=== PATIENT | female | born 1945 | race Caucasian/White ===

== ENCOUNTER 2016-09-24 12:55 | Outpatient (CLI) | payer OTHER, MEDICARE ==
--- NOTE | 2016-09-24 13:42 | DIAGNOSTIC IMAGING REPORT ---
PROCEDURE: MG BILATERAL SCREENING W/CAD INDICATION: SCREENING TECHNIQUE: Bilateral CC and MLO digital views. COMPARISON: Compared to prior studies from [facility] on 03/13/2015, 12/22/2013, and 09/01/2012. FINDINGS: Computer-aided detection applied. Dense parenchymal pattern with a few dystrophic calcifications. No change. IMPRESSION: 1. Negative mammogram. RESULT CODE: 1- Negative. A. A negative report should not delay biopsy if a dominant or clinically suspicious mass is present. 10-15% of cancers are not identified by x-ray. B. A negative report may reinforce clinical impression. C. Adenosis and dense breasts may obscure an underlying neoplasm. D. False positive reports average 6-10%. E.. A yearly screening mammogram is recommended. A reminder letter will be scheduled.
--- NOTE | 2016-09-24 17:35 | DIAGNOSTIC IMAGING REPORT ---
PROCEDURE: US ART LOWER EXT WITH MAMI-B/L INDICATION: Bilateral lower extremity claudication. No history of diabetes. TECHNIQUE: Preexercise ABIs were performed. The patient was exercised (toe-ups) and postexercise ABIs were repeated followed by color Doppler duplex imaging of the lower extremities. COMPARISON: None. FINDINGS: RIGHT LOWER EXTREMITY: ABIs: Pre exercise ABIs are severely diminished (posterior tibial N/A, dorsalis pedis 0.3) and are minimally changed following exercise (posterior tibial N/A, dorsalis pedis 0.5). VESSELS: There are severe calcified atheromatous changes of the right lower extremity arterial system. RIGHT LOWER EXTREMITY PEAK SYSTOLIC VELOCITIES: External iliac: Biphasic 213 cm/second. Common femoral artery: Biphasic 119 cm/second. Profunda femoral artery: Biphasic 142 cm/second. Proximal superficial femoral artery: Biphasic 49 cm/second. Mid superficial femoral artery: Biphasic 64 cm/second. Distal superficial femoral artery: Monophasic 75 cm/second. Popliteal artery: Monophasic 71 cm/second. Proximal posterior tibial artery: Monophasic 9 cm/second. Proximal anterior tibial artery: Monophasic 18 cm/second. Peroneal artery: Monophasic 10 cm/second. Distal posterior tibial artery: Monophasic 8 cm/second. Dorsalis pedis artery: Monophasic 17 cm/second. LEFT LOWER EXTREMITY: ABIs: Pre exercise ABIs are moderately to severely diminished (posterior tibial 0.7, dorsalis pedis 0.4) and are moderately worse following exercise (dorsalis pedis 0.4, dorsalis pedis 0.4). VESSELS: There are severe calcified atheromatous changes of the left lower extremity arterial system. LEFT LOWER EXTREMITY PEAK SYSTOLIC VELOCITIES: External iliac: Biphasic 152 cm/second. Common femoral artery: Biphasic 124 cm/second. Profunda femoral artery: Biphasic 82 cm/second. Proximal superficial femoral artery: Monophasic 359 cm/second. Mid superficial femoral artery: Monophasic 106 cm/second. Distal superficial femoral artery: Monophasic 94 cm/second. Popliteal artery: Monophasic 50 cm/second. Proximal posterior tibial artery: Monophasic 22 cm/second. Proximal anterior tibial artery: Monophasic 13 cm/second. Peroneal artery: Monophasic 17 cm/second. Distal posterior tibial artery: Monophasic 22 cm/second. Dorsalis pedis artery: Monophasic 16 cm/second. IMPRESSION: 1. Marked calcified atheromatous change of bilateral lower extremity all system. 2. Severe resting and postexercise arterial insufficiency of the right lower extremity secondary to multilevel atheromatous disease and severe trifurcation disease. 3. Moderate to severe resting and severe postexercise arterial insufficiency of the left lower extremity secondary multilevel atheromatous disease, high-grade stenosis (50-99%) of the proximal left superficial femoral artery, and severe trifurcation disease.
== END 2016-09-24 23:00 ==
LOC: MAM SRH 12:55 → US SRH 14:00 → MAM SRH 23:00
DX: Z12.31 Encounter for screening mammogram for malignant neoplasm of breast (principal); I74.3 Embolism and thrombosis of arteries of the lower extremities